=== PATIENT | female | born 2000 | race Two or more races ===

== ENCOUNTER 2021-05-09 11:09 | Emergency (ER) | payer MEDICAID ==
[~2021-05-09] VITALS: Ht 157.5 cm; Wt 58.2 kg
[2021-05-09] MEDS ORDERED: SULFAMETHOX/TRIMETH DS 800-160 MG/TABLET PO ONE (11:45)
[2021-05-09] MEDS ORDERED: POVIDONE-IODINE 10% 15 ML SOLUTION UD TP ONE (11:45)
[2021-05-09] MEDS ORDERED: HYDROCODONE/ACETAMINOPHEN 5-325 MG TABLET PO ONE (11:45)
[2021-05-09] MEDS ORDERED: LIDOCAINE 1%/EPI 1:200,000/PF 10 ML VIAL ID ONE (11:45)
[2021-05-09] MEDS ORDERED: CEPHALEXIN MONOHYDRATE 500 MG CAPSULE PO ONE (11:45)
[2021-05-09] MEDS ORDERED: BIRTH CONTROL PO (12:24)
[2021-05-09 13:00] VITALS: BP 121/81
== END 2021-05-09 13:36 | disposition home or self-care (01) ==
LOC: EMS 11:18
DX: L02.31 Cutaneous abscess of buttock (principal)
CPT/HCPCS: 10060; 99284; J3490

== ENCOUNTER 2021-05-13 01:16 | Emergency (ER) | payer MEDICAID ==
[~2021-05-13] VITALS: Ht 157.5 cm; Wt 58.2 kg
[~2021-05-13 01:16] MED LIST: BIRTH CONTROL PO
[2021-05-13 04:00] VITALS: BP 122/62
== END 2021-05-13 04:11 | disposition home or self-care (01) ==
LOC: EMS 01:17
DX: L02.31 Cutaneous abscess of buttock (principal)
CPT/HCPCS: 99281; Z7502

== ENCOUNTER 2021-05-19 23:46 | Emergency (ER) | payer MEDICAID ==
[~2021-05-19] VITALS: Ht 157.5 cm; Wt 53.2 kg
[2021-05-20 04:55] LABS: APPEARANCE,URINE CLEAR (CLEAR); BILIRUBIN,URINE NEGATIVE (NEGATIVE); GLUCOSE, URINE (UA) >=1000 mg/dL (NEGATIVE); KETONES,URINE >=80 mg/dL (NEGATIVE); LEUKOCYTE ESTERASE ,URINE NEGATIVE (NEGATIVE); NITRATE,URINE NEGATIVE (NEGATIVE); OCCULT BLOOD,URINE NEGATIVE (NEGATIVE); PH,URINE 5.5 (5.0-8.0); PROTEIN,URINE NEGATIVE (NEGATIVE); UROBILINOGEN,URINE 0.2 mg/dL (<=1.0)
[2021-05-20 05:23] LABS: BACTERIA,URINE Rare /HPF (None Seen); WBC,URINE 0-2 /HPF (0-5)
[2021-05-20] MEDS: CefTRIAXone SODIUM 1 GM/VIAL IM ONE (06:46)
[2021-05-20] MEDS: AZITHROMYCIN 500 MG TABLET PO ONE (06:47)
[2021-05-20] MEDS: LIDOCAINE/PF 1% 2 ML VIAL IM ONE (06:47)
[2021-05-20] MEDS: SODIUM CHLORIDE 0.9% 1,000 ML IV ONE (07:08)
[2021-05-20 07:09] VITALS: BP 116/73
[2021-05-20 07:12] LABS: BASOPHILS % (AUTO) 0.6 % (0.0-2.0); EOSINOPHILS % (AUTO) 1.4 % (1.0-6.0); HEMATOCRIT 38.5 % (36-46); HEMOGLOBIN 13.2 g/dL (12.0-16.0); LYMPHOCYTES # (AUTO) 2.2 K/uL (1.0-4.8); LYMPHOCYTES % (AUTO) 35.9 % (22.0-44.0); MEAN CORPUSCULAR HEMOGLOBIN 29.4 pg (26.0-34.0); MEAN CORPUSCULAR HGB CONC 34.3 G/dL (31.0-37.0); MEAN CORPUSCULAR VOLUME 86 fL (80-100); MONOCYTES # (AUTO) 0.6 K/uL (0.1-1.0); MONOCYTES % (AUTO) 10.2 % (2.0-9.0); NEUTROPHILS # (AUTO) 3.1 K/uL (1.8-7.7); NEUTROPHILS % (AUTO) 51.9 % (40.0-70.0); PLATELET COUNT (AUTO) 218 K/uL (150-450); RED BLOOD CELL COUNT(AUTO) 4.49 MIL/uL (4.00-5.20); RED CELL DISTRIBUTION WIDTH 12.6 % (11.5-14.5)
[2021-05-20 07:23] LABS: ANION GAP 12 mmol/L (8-16); CALCIUM, TOTAL 8.9 mg/dL (8.8-10.5); CARBON DIOXIDE 22 mmol/L (22-29); CHLORIDE 99 mmol/L (98-107); CREATININE 0.47 mg/dL (0.60-1.30); GLOMERULAR FILTR. RATE CALC > 60 mL/min (>60); GLUCOSE,RANDOM 347 mg/dL (70-110); SODIUM SERUM 133 mmol/L (136-145); UREA NITROGEN, BLOOD 12 mg/dL (7-18)
[2021-05-20 07:29] LABS: ALANINE AMINOTRANSFERASE 22 U/L (12-78); ALBUMIN 3.7 g/dL (3.4-5.0); ALKALINE PHOSPHATASE 111 U/L (46-116); ASPARTATE AMINOTRANSFERASE 9 U/L (15-37); BILIRUBIN,TOTAL 0.3 mg/dL (0.1-1.0); TOTAL PROTEIN, SERUM 7.8 g/dL (6.4-8.2)
[2021-05-20 08:12] LABS: GLUCOSE,POINT OF CARE 299 MG/DL (70-110)
[2021-05-20] MEDS ORDERED: SODIUM CHLORIDE 0.9% 1,000 ML IV ONE (08:15)
[2021-05-20 08:36] LABS: GLUCOSE,POINT OF CARE 286 MG/DL (70-110)
== END 2021-05-20 08:45 | disposition home or self-care (01) ==
LOC: EMS 23:47
DX: R10.2 Pelvic and perineal pain (principal); R73.9 Hyperglycemia, unspecified
CPT/HCPCS: 36415; 80053; 81001; 82962; 84703; 85025; 87210; 87491; 87591; 96360; 96372; 99285; A9575; J0696; J3490; J7030

== ENCOUNTER 2021-07-22 09:57 | Emergency (ER) | payer MEDICAID ==
[~2021-07-22] VITALS: Ht 157.5 cm; Wt 55.0 kg
[2021-07-22] MEDS ORDERED: BUPIVACAINE HCL/PF 0.25% 10 ML VIAL SQ ONE (10:45)
[2021-07-22] MEDS ORDERED: POVIDONE-IODINE 10% 120 ML SOLUTION TP ONE (10:45)
[2021-07-22 11:10] VITALS: BP 120/70
== END 2021-07-22 11:13 | disposition home or self-care (01) ==
LOC: EMS 10:00
DX: L02.214 Cutaneous abscess of groin (principal); E11.9 Type 2 diabetes mellitus without complications
CPT/HCPCS: 10060; 82962; 99283; J3490; 82948; 99284

== ENCOUNTER 2021-09-23 07:22 | Emergency (ER) | payer SELFPAY ==
[~2021-09-23] VITALS: Ht 157.5 cm; Wt 59.0 kg
[2021-09-23] MEDS ORDERED: IBUP-2759 PO (07:27)
[2021-09-23 07:29] VITALS: BP 94/58
[2021-09-23] MEDS ORDERED: BUPIVACAINE HCL/PF 0.25% 10 ML VIAL SQ ONE (08:00)
[2021-09-23] MEDS ORDERED: POVIDONE-IODINE 10% 120 ML SOLUTION TP ONE (08:00)
== END 2021-09-23 09:04 | disposition home or self-care (01) ==
LOC: EMS 07:22
DX: L02.411 Cutaneous abscess of right axilla (principal); E11.65 Type 2 diabetes mellitus with hyperglycemia; Z79.899 Other long term (current) drug therapy
CPT/HCPCS: 10060; 82948; 99283; J3490